=== PATIENT | female | born 1950 | race African-American/Black ===

== ENCOUNTER 2018-07-04 14:11 | Inpatient (IN) | payer OTHER ==
[2018-07-04] VITALS (13 sets, daily range): BP systolic 111–180; BP diastolic 71–99; BMI 30.3
[~2018-07-04] VITALS: Ht 165.1 cm; Wt 83.2 kg
--- NOTE | ~2018-07-04 | HEMODYNAMI ---
PATIENT:FLORIDALMA MIRAMONTES MEDICAL RECORD: [id number] : 48 [facility] AD[facility] DATE: 07/04/18 Generatedon:07/06/20189:20 Patient name: FLORIDALMA MIRAMONTES Patient #: [id number] SSN: : 1950 Date of study: 07/06/2018 Page: Of Hemodynamic Procedure Report Patient Data Patient Demographics Procedure consent was obtained First Name: FLORIDALMA Gender: Female Last Name: KULWINDER : 1950 Middle Initial: JOVANNA Age: 67 year(s) Patient #: [id number] Race: Black Additional ID: [id number] Contact details [address]: [address] [place] [address] State: [place] City: [place] Zip code: [address] Past Medical History Allergies: No known allergies Admission Admission Data Admission Date: 07/04/2018 Admission Time: 17:10 Admit Source: Emergency department Room #: D.07 Height (in.): 64.96 BSA: 1.88 (m2) Height (cm.): 165 BMI: 29.75 (kg/m2) Weight (lbs.): 178.58 Weight (kg.): 81 Procedure Procedure Types Cath Procedure Diagnostic Procedure Sedation Charges Moderate Sedation up to 15 minutes PCI Procedure Coronary Stent Coronary Stent Initial x2 Procedure Description Procedure Date Procedure Date: 07/06/2018 Procedure Start Time: 8:49 Procedure End Time: 9:19 Procedure Staff Name Function Navneet Vega MD Performing Physician Francheska Quintero RT Scrub Joaquina Alejo RT Monitor Clarisa Smith RN Nurse Bowen Schulte RN Caregivers Non Medical Jimenez May RN Nurse Procedure Data Cath Procedure Fluoroscopy Diagnostic fluoroscopy Total fluoroscopy Time: 7.1 time: 7.1 min min Diagnostic fluoroscopy Total fluoroscopy dose: 553 dose: 553 mGy mGy Contrast Material Contrast Material Type Amount (ml) Isovue 300 86 Entry Location Entry Primary Successful Side Size Upsize Upsize Entry Closure Succes sful Closure Location (Fr) 1 (Fr) 2 (Fr) Remarks Device Remarks Femoral Right 6 Fr Exoseal artery Short Estimated blood loss: 5 ml Procedure Complications No complications Procedure Medications Medication Administration Route Dosage 0.9% NaCl I.V. 100 ml/hr Oxygen etCO2 Nasal cannula 2 l/min Lidocaine 2% added to field 20 Heparin Flush Bag added to field 2 bags (1000units/500ml NS) Versed 2 mg Fentanyl I.V. 50 mcg Versed I.V. 2 mg Fentanyl I.V. 50 mcg Heparin Bolus I.V. 8500 units Plavix P.O. 75 mg Nitroglycerin IC/IA I.C. 100 mcg Versed I.V. 1 mg Hemodynamics Rest BSA: 1.88 (m2) O2 Consumption: Estimated: 188.4 (ml/min) O2 Consumption indexed: Estimated:100.21 (ml/min/m) Heart Rate: 90 (bpm) Snapshots Pre Cath Intra NCS Post Cath Vital Signs Time Heart Resp SPO2 etCO2 NIBP (mmHg) Rhythm Pain Sedation Rate (ipm) (%) (mmHg) Status Level (bpm) 8:39:40 88 11 100 36.7 138/71(80) NSR 0 (11) 10(A) , No pain 8:44:02 92 15 100 30.8 140/81(115) NSR 0 (11) 10(A) , No pain 8:48:24 90 13 100 35.3 120/70(92) NSR 0 (11) 9(A) , No pain 8:52:38 90 17 100 39.8 113/79(105) NSR 0 (11) 9(A) , No pain 8:56:52 90 13 99 42.8 114/70(88) NSR 0 (11) 9(A) , No pain 9:01:06 92 10 100 24.8 127/74(93) NSR 0 (11) 9(A) , No pain 9:05:22 93 11 100 13.5 132/69(100) NSR 0 (11) 10(A) , No pain 9:09:36 95 13 99 12.7 130/83(98) NSR 0 (11) 9(A) , No pain 9:13:52 92 14 100 25.2 137/82(110) NSR 0 (11) 9(A) , No pain 9:18:14 91 11 100 33 142/77(107) NSR 0 (11) 10(A) , No pain Medications Time Medication Route Dose Verified Delivered Reason Notes Effectiveness by by 8:38:48 Plavix P.O. 75 mg Navneet Clarisa for Gary Smith antiplatelet RN therapy 8:41:04 Fentanyl I.V. 50 Navneet Clarisa for sedation mcg Gary Smith RN 8:41:52 Versed 2 mg Navneet Clarisa for sedation Gary Smith RN 8:44:36 0.9% NaCl I.V. 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 2 mg Navneet Clarisa for sedation Gary Smith RN 8:48:03 Fentanyl I.V. 50 Navneet Clarisa for sedation mcg Gary Smith RN 8:53:27 Heparin Bolus I.V. 8500 Navneet Clarisa for verifi ed units Gary Smith anticoagulation with Dr. TERRELL Vega 9:05:35 Nitroglycerin I.C. 100 Navneet Navneet for IC/IA mcg Gary Vega MD vasodilation 9:06:31 Versed I.V. 1 mg Navneet Clarisa for sedation Gary Smith RN Procedure Log Time Note 8:14:12 Patient Height : 64.96 inches 8:14:12 Patient Weight : 178.58 lbs 8:15:25 Signed procedure consent form obtained from patient. 8:15:26 Diagnostic Cath status Elective 8:15:27 Time tracking: Regular hours (M-F 7:00 - 5:00) 8:15:31 Plan of Care:Hemodynamics will remain stable., Cardiac rhythm will remain stable., Comfort level will be maintained., Respiratory function will remain adequate., Patient/ family verbilizes understanding of procedure., Procedure tolerated without complication., Recovers from procedure without complications.. 8:19:46 Jimenez May RN sent for patient. Start room use. 8:31:29 Patient received from CVICU to CCL 1 Alert and oriented. Tansferred to table in Supine position. 8:31:31 Warm blankets applied, and romelia hugger turned on for patient comfort. 8:31:31 Correct patient and procedure confirmed by team. 8:31:32 ECG and BP/O2 sat monitors applied to patient. 8:33:59 Full Disclosure recording started 8:34:43 H&P Date Dictated: 07/04/2018 Within 30 days and on chart.. 8:34:46 Pre-procedure instructions explained to patient. 8:34:47 Pre-op teaching completed and patient verbalized understanding. 8:34:52 Family in waiting room. 8:34:54 Patient NPO since Midnight. 8:35:10 Patient allergic to No known allergies 8:35:14 Is the patient allergic to Iodine/contrast media? No. 8:36:11 Is patient on blood thinner?Yes 8:36:14 ACC The patient was administered the following blood thiners within the last 24 hours: ACCPlavix 8:36:55 Patient diabetic? Yes. 8:36:56 If diabetic: On Metformin? Yes 8:37:07 If on Metformin: Last Dose? 07/04/2018 8:37:11 Previous problem with sedation/anesthesia? No ? 8:37:13 Snore? Yes 8:37:14 Sleep apnea? No 8:37:15 Deviated septum? No 8:37:15 Opens mouth fully? Yes 8:37:16 Sticks out tongue? Yes 8:37:18 Airway obstruction? No ? 8:37:24 Dentures? Yes out 8:37:36 Pre procedure: right dorsailis pedis pulse 2+ Normal; easily identifiable; not easily obliterated 8:37:42 Patient pain scale 0/10 ?. 8:37:49 Lab results completed and on chart. 8:37:52 Right groin area was prepped with chlora-prep and draped in sterile fashion 8:37:54 Alarms reviewed by R. N. 8:37:54 Sharps counted by scrub and verified by R.N. 8:38:13 Vital chart was started 8:38:17 Rhythm: sinus rhythm 8:38:48 Plavix 75 mg P.O. was administered by Clarisa Smith RN; for antiplatelet therapy; 8:40:33 Physician arrived 8:40:34 --------ALL STOP TIME OUT------ 8:40:34 Final Timeout: patient, procedure, and site verified with staff and physician. All members of the team are in agreement. 8:40:36 Right groin site verified by team. 8:40:41 Maximum allowable Isovue 300 dose 300ml. Physician notified. (300ml for normal creatinines. For patients with creatinine of 1.7 or higher multiply weight(kg) x 5 divided by creatinine.) 8:40:55 Fire Safety Assessment: A--An alcohol-based skin anteseptic being used preoperatively., C--Open oxygen or nitrous oxide is being used., D--An ESU, laser, or fiber-optic light is being used. 8:41:00 Physical assessment completed. ASA score P 2 - A patient with mild systemic disease as per Navneet Vega MD. 8:41:04 Fentanyl 50 mcg I.V. was administered by Clarisa Smith RN; for sedation; 8:41:09 Sedation plan: IV Moderate Sedation Medication:Versed, Fentanyl 8:41:52 Versed 2 mg was administered by Clarisa Smith RN; for sedation; 8:44:36 0.9% NaCl 100 ml/hr I.V. was administered by Clarisa Smith RN; used for procedure; 8:44:42 Oxygen 2 l/min etCO2 Nasal cannula was administered by Clarisa Smith RN; used for procedure; 8:44:48 Lidocaine 2% 20ml vial added to field was administered by Navneet Vega MD; for local anesthetic; 8:44:52 Heparin Flush Bag (1000units/500ml NS) 2 bags added to field was administered by Navneet Vega MD; used for procedure; 8:46:27 Use device set CATH PACK 8:46:28 ACIST Syringe (19407) opened to sterile field. 8:46:29 ACIST Hand Control (57403) opened to sterile field. 8:46:29 ACIST Manifold (20138) opened to sterile field. 8:46:30 Medline Cath Pack ([id number]) opened to sterile field. 8:46:30 Bag Decanter () opened to sterile field. 8:46:31 DIAGNOSTIC WIRE .035 260cm J wire (387430) opened to sterile field. 8:46:53 TUBING High Pressure Extension Tubing (Gary) ([id number]) opened to sterile field. 8:46:54 BMW 300cm [place] 2 J wire ([id number]) opened to sterile field. 8:46:55 INFLATOR Merit BasixCompak (DU6870) opened to sterile field. 8:46:56 SHEATH 6FR [place] (GOR386) opened to sterile field. 8:47:54 Baseline sample Acquired. 8:47:58 Versed 2 mg I.V. was administered by Clarisa Smith RN; for sedation; 8:48:02 Zero performed for pressure channel P1 8:48:03 Fentanyl 50 mcg I.V. was administered by Clarisa Smith RN; for sedation; 8:48:12 Zero performed for pressure channel P1 8:49:41 Procedure started. 8:49:52 Local anesthetic to right femoral artery with Lidocaine 2% by Navneet Vega MD.INITIAL ACCESS ONLY 8:50:00 GUIDE 6FR XBLAD 3.5 catheter ([id number]) opened to sterile field. 8:50:18 A 6 Fr Short sheath was inserted into the Right Femoral artery 8:52:01 6 Fr xblad 3.5 guide catheter was inserted over the wire 8:53:27 Heparin Bolus 8500 units I.V. was administered by Clarisa Smith RN; for anticoagulation; verified with Dr. Vega 8:53:50 LCA angiography performed. 8:53:53 Injector settings: Ml/sec: 3, Volume: 6, 8:53:59 bmw wire advanced. 8:55:09 Wire advanced across lesion. 8:57:34 Place stent Inflation Number: 1 A ROSSY RX 3.5 x 12 stent ([id number]) was prepped and advanced across the Mid CX. The stent was deployed at 14 CHANDANA for 0:10 (min:sec). 8:57:51 Stent catheter was removed intact over wire. 8:58:49 Wire removed. 8:58:51 Guide catheter removed. 8:59:11 GUIDE 6FR AR 1.0 catheter ([id number]) opened to sterile field. 8:59:19 6 Fr ar 1 guide catheter was inserted over the wire 9:01:11 RCA angiography performed. 9:01:14 Injector settings: Ml/sec: 3, Volume: 6, 9:02:17 Guide catheter removed. 9:02:58 GUIDE 6FR JR 4.0 SH catheter ([id number]) opened to sterile field. 9:03:21 6 Fr jr 4 sh guide catheter was inserted over the wire 9:05:02 RCA angiography performed. 9:05:06 Injector settings: Ml/sec: 3, Volume: 6, 9:05:35 Nitroglycerin IC/IA 100 mcg I.C. was administered by Navneet Vega MD; for vasodilation; 9:06:31 Versed 1 mg I.V. was administered by Clarisa Smith RN; for sedation; 9:07:10 bmw wire advanced. 9:08:56 Wire advanced across lesion. 9:12:08 Place stent Inflation Number: 1 A ROSSY OTW 3.5 x 26 stent ([id number]) was prepped and advanced across the Prox RCA. The stent was deployed at 13 CHANDANA for 0:10 (min:sec). 9:14:15 Stent catheter was removed intact over wire. 9:16:04 Place stent Inflation Number: 1 A ROSSY OTW 3.5 x 18 stent ([id number]) was prepped and advanced across the Mid RCA. The stent was deployed at 14 CHANDANA for 0:10 (min:sec). 9:16:32 Stent catheter was removed intact over wire. 9:16:33 Wire removed. 9:16:34 Guide catheter removed. 9:16:45 EXOSEAL 6Fr (EX600) opened to sterile field. 9:17:46 Sheath removed intact; hemostasis achieved with Exoseal to the Right Femoral artery. 9:17:48 Procedure ended.(Physican Out) 9:17:58 Fluoroscopy time 07.10 minutes. 9:18:19 Flurop Dose total: 553 9:18:19 Fluoroscopy dose: 553 mGy 9:18:24 Contrast amount:Isovue 300 86ml. 9:18:27 Insertion/operative site no bleeding no hematoma. 9:18:29 Post-op/insertion site Right Femoral artery dressed using a 4 x 4 and Tegaderm. 9:18:39 Post procedure rhythm: unchanged. 9:18:41 Estimated blood loss: 5 ml 9:18:43 Post procedure instruction explained to patient.Patient verbalizes understanding. 9:18:44 Patient needs reinforcement of post procedure teaching. 9:19:01 Procedure type changed to Cath procedure, Diagnostic procedure, Sedation Charges, Moderate Sedation up to 15 minutes, PCI procedure, Coronary Stent, Coronary Stent Initial x2 9:19:02 Procedure and supply charges have been captured, reviewed, submitted and are correct. 9:19:07 Procedure Complication : No complications 9:19:09 Vital chart was stopped 9:19:10 See physician's report for complete and final results. 9:19:14 Report given to CVICU. 9:19:16 Patient transfered to CVICU with Stretcher. 9:19:19 Procedure ended. 9:19:19 Full Disclosure recording stopped 9:20:08 ACC-PCI Only Patient was given prescriptions, or instructed by Navneet Vega MD to start/continue the following medications upon discharge: Plavix 9:20:10 End room use (Document Last) Intervention Summary Intervention Notes Time ActionType Lesion and Equipment Used Action# Pressure Duration Attributes 8:57:34 Place stent Mid CX ROSSY RX 3.5 x 1 14 00:10 12 stent ([id number]) 9:12:08 Place stent Prox RCA ROSSY OTW 3.5 x 1 13 00:10 26 stent ([id number]) 9:16:04 Place stent Mid RCA ROSSY OTW 3.5 x 1 14 00:10 18 stent ([id number]) Device Usage Item Name Manufacture Quantity Catalog [facility] Lot# / Number Charge Number Stock Stock Serial# Code ACIST Syringe Acist 1 00842 544501 963024 081314 20 (79909) Medical Systems Inc ACIST Hand Acist 1 66536 409961 964428 795786 5 Control Medical (76222) [employer]on[employer] Inc ACIST Manifold Acist 1 53812 299439 343065 730764 5 (00495) Medical Systems Inc Medline Cath Medline 1 [id number] 440565 48432 693149 5 Pack ([id number]) Bag Decanter Microtek 1 928485 99008 521129 5 () Medical Inc. DIAGNOSTIC St [place] 1 857969 107740 985128 975148 30 WIRE .035 260cm J wire (532459) TUBING High Merit 1 [id number] 715681 56997 980884 10 Pressure Medical Extension Tubing (Vega) ([id number]) BMW 300cm Mary 1 [id number] 409586 164233 582415 5 [place] 2 J Vascular wire ([id number]) INFLATOR Merit Merit 1 LS4029 867308 656858 131749 15 DrizlywvCustomcells Medical (BV8026) SHEATH 6FR Terumo 1 NAB400 323117 115677 054719 40 [place] (PBZ065) GUIDE 6FR Cardinal 1 [id number] 782180 167679 635234 10 XBLAD 3.5 Health catheter (21032302) ROSSY RX 3.5 x Medtronic 1 [id number] 018134 7425074 816986 5 [id number] 12 stent ([id number]) GUIDE 6FR AR Medtronic 1 [id number] 467011 90181 947055 1 1.0 catheter (GD6ZQ85) GUIDE 6FR JR Medtronic 1 [id number] 034832 69741 610237 1 4.0 SH catheter ([id number]) ROSSY OTW 3.5 x Medtronic 1 [id number] 006298 5223405 390627 5 [id number] 26 stent ([id number]) ROSSY OTW 3.5 x Medtronic 1 [id number] 509356 0093926 275628 5 [id number] 18 stent ([id number]) EXOSEAL 6Fr Cardinal 1 EX600 610428 356038 933444 10 (EX600) Health Signature Audit [place] Stage Time Signature Unsigned Intra-Procedure 07/06/2018 Joaquina Alejo 9:20:37 AM RT(R) Signatures Monitor : Joaquina Alejo RT Signature : Date : Time : [address] [place], [place] [id number]
--- NOTE | ~2018-07-04 | HEMODYNAMI ---
PATIENT:FLORIDALMA MIRAMONTES MEDICAL RECORD: [id number] : 48 [id number] ADMISSION DATE: 07/04/18 Generatedon:07/04/201816:18 Patient name: FLORIDALMA MIRAMONTES Patient #: [id number] SSN: : 1950 Date of study: 07/04/2018 Page: Of Hemodynamic Procedure Report Patient Data Patient Demographics Procedure consent was obtained First Name: FLORIDALMA Gender: Female Last Name: KULWINDER : 1950 Middle Initial: JOVANNA Age: 67 year(s) Patient #: [id number] Race: Black Additional ID: [id number] Contact details [address]: [address] [place] [address] State: [place] City: [place] Zip code: [address] Admission Admission Data Admission Date: 07/04/2018 Admission Time: 15:25 Admit Source: Emergency department Room #: MAURA Height (in.): 64.96 BSA: 1.88 (m2) Height (cm.): 165 BMI: 29.75 (kg/m2) Weight (lbs.): 178.58 Weight (kg.): 81 Procedure Procedure Types Cath Procedure Diagnostic Procedure [facility] w/Coronaries Sedation Charges Moderate Sedation up to 30 minutes PCI Procedure AMI/SVG/FARMWORKER LIVESTOCK PTCA or Stent AMI-BMS/JOSE Initial Procedure Description Procedure Date Procedure Date: 07/04/2018 Procedure Start Time: 15:30 Procedure End Time: 16:13 Procedure Staff Name Function Francheska Quintero RT Monitor Brendon Ruano RT Scrub Taurus Cummings RN Nurse Yevgeniy Keith MD Performing Physician Procedure Data Cath Procedure Fluoroscopy Diagnostic fluoroscopy Total fluoroscopy Time: time: 10.5 min 10.5 min Diagnostic fluoroscopy Total fluoroscopy dose: dose: 2337 mGy 2337 mGy Contrast Material Contrast Material Type Amount (ml) Isovue 300 145 Entry Location Entry Primary Successful Side Size Upsize Upsize Entry Closure Succes sful Closure Location (Fr) 1 (Fr) 2 (Fr) Remarks Device Remarks Femoral Right 6 Fr Exoseal artery Short Estimated blood loss: 10 ml Diagnostic catheters Device Type Used For End Catheter Placement MULTIPACK 3DRC 5Fr Procedure catheter MULTIPACK Pigtail 5 Fr Procedure catheter Procedure Complications No complications Procedure Medications Medication Administration Route Dosage 0.9% NaCl I.V. 100 ml/hr Oxygen etCO2 Nasal cannula 2 l/min Heparin Flush Bag added to field 2 bags (1000units/500ml NS) Lidocaine 2% added to field 20 Versed I.V. 1 mg Fentanyl I.V. 50 mcg Integrilin (Bolus I.V. 7.3 ml 2mg/ml) Integrilin (Bolus wasted 2.7 ml 2mg/ml) Lopressor I.V. 5 mg Nitroglycerin IC/IA I.C. 200 mcg Lopressor I.V. 5 mg Versed I.V. 1 mg Fentanyl I.V. 50 mcg Integrilin Drip I.V. drip 13 ml/hr (75mg/100ml) Hemodynamics Rest BSA: 1.88 (m2) O2 Consumption: Estimated: 205.91 (ml/min) O2 Consumption indexed : Estimated:109.53 (ml/min/m) Heart Rate: 115 (bpm) Pressure Samples Time Site Value (mmHg) Purpose Heart Use Rate(bpm) 16:03 LV 186/2,33 Snapshot 80 16:03 AO 179/81(129) Pullback 88 Gradients Valve Time Site Site 2 Mean SEP/DFP Peak To Heart Use 1 (mmHg) (sec/min) Peak Rate (mmHg) (bpm) Aortic 16:03 LV AO 10 13 88 179/81(129) Calculations Valve P-P Mean Valve Index Valve Source Name Gradient Area Flow (cm2) Aortic 10 10 Snapshots Pre Cath Intra NCS Post Cath Vital Signs Time Heart Resp SPO2 etCO2 NIBP (mmHg) Rhythm Pain Status Sedation Rate (ipm) (%) (mmHg) Level (bpm) 15:24:46 114 13 97 0 169/111(149) NSR 10 (11) , 10(A) Unimaginable unspeakable 15:29:02 112 17 95 0 170/106(140) NSR 10 (11) , 10(A) Unimaginable unspeakable 15:33:19 112 14 97 26.3 170/108(134) NSR 0 (11) , No 9(A) pain 15:37:36 106 13 93 29.3 171/105(138) NSR 0 (11) , No 9(A) pain 15:41:54 94 17 94 33.9 180/103(141) NSR 0 (11) , No 9(A) pain 15:46:15 92 12 99 32.4 185/105(149) NSR 0 (11) , No 9(A) pain 15:50:35 91 16 99 30.8 160/99(131) NSR 0 (11) , No 9(A) pain 15:54:49 93 14 100 23.3 177/108(150) NSR 0 (11) , No 9(A) pain 15:59:09 89 16 100 32.4 179/112(150) NSR 0 (11) , No 9(A) pain 16:03:29 116 15 99 28.6 175/110(138) NSR 0 (11) , No 9(A) pain 16:07:49 89 14 100 27.1 177/109(150) NSR 0 (11) , No 9(A) pain 16:12:09 86 17 100 26.3 178/102(150) NSR 0 (11) , No 9(A) pain Medications Time Medication Route Dose Verified Delivered Reason Notes E ffectiveness by by 15:28:13 0.9% NaCl I.V. 100 Taurus Taurus Per ml/hr Zoila Cummings physician RN RN 15:28:21 Oxygen etCO2 2 Taurus Taurus for low 02 Nasal l/min Zoila Cummings sats cannula RN RN 15:28:32 Heparin Flush added 2 Taurus Taurus used for Bag to bags Zoila Cummings procedure (1000units/500ml RN RN NS) 15:28:42 Lidocaine 2% added 20ml Taurus Taurus for local to vial Zoila Cummings anesthetic field TEJADA RN 15:28:53 Versed I.V. 1 mg Taurus Taurus for sedation Zoila Cummings RN RN 15:29:04 Fentanyl I.V. 50 Taurus Taurus for sedation mcg Zoila Cummings RN RN 15:35:24 Integrilin I.V. 7.3 Taurus Taurus for (Bolus 2mg/ml) ml Zoila Cummings antiplatelet RN RN therapy 15:35:31 Integrilin wasted 2.7 Taurus Taurus to sharp's (Bolus 2mg/ml) ml Zoila Cummings RN RN 15:36:59 Lopressor I.V. 5 mg Taurus Taurus for Lorigan Lortyrell hypertension RN RN 15:49:47 Nitroglycerin I.C. 200 Taurus Yevgeniy for IC/IA mcg Lortyrell Hart RN, MD 15:56:27 Lopressor I.V. 5 mg Taurus Taurus for Lorigan Lortyrell hypertension RN RN 16:11:48 Versed I.V. 1 mg Taurus Taurus for sedation Zoila Cummings RN RN 16:11:55 Fentanyl I.V. 50 Taurus Taurus for sedation mcg Zoila Cummings RN RN 16:16:56 Integrilin Drip I.V. 13 Taurus Taurus for (75mg/100ml) drip ml/hr Zoila Cummings antiplatelet RN RN therapy Procedure Log Time Note 15:07:31 Informed consent obtained and on chart 15:07:35 Admit Source: Emergency department 15:07:48 Diagnostic Cath status Elective 15:07:50 Brendon Ruano RT(R) sent for patient. Start room use. 15:07:50 Time tracking: Regular hours (M-F 7:00 - 5:00) 15:07:54 Plan of Care:Hemodynamics will remain stable., Cardiac rhythm will remain stable., Comfort level will be maintained., Respiratory function will remain adequate., Patient/ family verbilizes understanding of procedure., Procedure tolerated without complication., Recovers from procedure without complications.. 15:16:33 Patient Weight : 178.58 lbs 15:16:49 Patient Height : 64.96 inches 15:20:02 Patient received from ED to CCL 2 Alert and oriented. Tansferred to table in Supine position. 15:20:02 Warm blankets applied, and romelia hugger turned on for patient comfort. 15:20:03 Correct patient and procedure confirmed by team. 15:20:03 ECG and BP/O2 sat monitors applied to patient. 15:23:20 Vital chart was started 15:25:28 Baseline sample Acquired. 15:26:02 Rhythm: sinus rhythm , w/ ST elevation 15:26:03 Full Disclosure recording started 15:26:19 H&P Date Dictated: 07/04/2018 ER History on chart.. 15:26:25 Pre-op teaching completed and patient verbalized understanding. 15:26:27 Pre-procedure instructions explained to patient. 15:26:29 Family in waiting room. 15:26:50 Patient NPO since Breakfast. 15:26:56 Is the patient allergic to Iodine/contrast media? No. 15:27:00 Is patient on blood thinner?Yes 15:27:09 ACC The patient was administered the following blood thiners within the last 24 hours: ACCPlavix 15:27:14 Patient diabetic? Yes. 15:27:16 If diabetic: On Metformin? Yes 15:27:18 If on Metformin: Last Dose? 07/04/2018 15:27:24 Patient not . Patient is over age 55. 15:27:27 ----Pre-sedation anethsthesia assessment.---- 15:27:29 Previous problem with sedation/anesthesia? No ? 15:27:31 Snore? Yes 15:27:33 Sleep apnea? No 15:27:35 Deviated septum? No 15:27:36 Opens mouth fully? Yes 15:27:37 Sticks out tongue? Yes 15:27:41 Airway obstruction? No ? 15:27:48 Dentures? Yes OUT 15:27:53 Pre procedure: right dorsailis pedis pulse 2+ Normal; easily identifiable; not easily obliterated 15:28:01 IV patent on arrival in left forearm with 0.9% NaCl at O. 15:28:13 0.9% NaCl 100 ml/hr I.V. was administered by Taurus Cummings RN; Per physician; 15:28:13 Right groin area was prepped with chlora-prep and draped in sterile fashion 15:28:14 Alarms reviewed by R. N. 15:28:15 Sharps counted by scrub and verified by R.N. 15:28:18 Physician arrived 15:28:19 --------ALL STOP TIME OUT------ 15:28:20 Final Timeout: patient, procedure, and site verified with staff and physician. All members of the team are in agreement. 15:28:21 Oxygen 2 l/min etCO2 Nasal cannula was administered by Taurus Cummings RN; for low 02 sats; 15:28:23 Right groin site verified by team. 15:28:32 Heparin Flush Bag (1000units/500ml NS) 2 bags added to field was administered by Taurus Cummings RN; used for procedure; 15::39 Maximum allowable Isovue 300 dose 200ml. Physician notified. (300ml for normal creatinines. For patients with creatinine of 1.7 or higher multiply weight(kg) x 5 divided by creatinine.) 15::42 Lidocaine 2% 20ml vial added to field was administered by Taurus Cummings RN; for local anesthetic; 15::44 Fire Safety Assessment: A--An alcohol-based skin anteseptic being used preoperatively., C--Open oxygen or nitrous oxide is being used., D--An ESU, laser, or fiber-optic light is being used. 15:28:53 Versed 1 mg I.V. was administered by Taurus Cummings RN; for sedation; 15:29:04 Fentanyl 50 mcg I.V. was administered by Taurus Cummings RN; for sedation; 15:29:30 Physical assessment completed. ASA score P 2 - A patient with mild systemic disease as per Yevgeniy Keith MD. 15:29:36 Sedation plan: IV Moderate Sedation Medication:Versed, Fentanyl 15:29:48 Use device set Femoral Dx 15:29:50 ACIST Syringe (85814) opened to sterile field. 15:29:51 Bag Decanter (2002) opened to sterile field. 15:29:51 Medline Cath Pack ([id number]) opened to sterile field. 15:29:52 DIAGNOSTIC WIRE .035 260cm J wire (174459) opened to sterile field. 15:29:54 ACIST Hand Control (03220) opened to sterile field. 15:29:55 ACIST Manifold (58861) opened to sterile field. 15:29:56 DIAGNOSTIC Multipack 5Fr catheter set (SH1045) opened to sterile field. 15:29:57 Tegaderm 4 x 4 (1626W) opened to sterile field. 15:30:13 SHEATH 6FR Austin (QIN859) opened to sterile field. 15:30:26 Procedure started. 15:30:31 Local anesthetic to right femoral artery with Lidocaine 2% by Yevgeniy Keith MD.INITIAL ACCESS ONLY 15:30:34 Zero performed for pressure channel P1 15:31:01 A 6 Fr Short sheath was inserted into the Right Femoral artery 15:32:13 GUIDE 6FR XBLAD 3.5 catheter ([id number]) opened to sterile field. 15:32:24 INFLATOR Merit BasixCompak (MO7633) opened to sterile field. 15:32:48 6 Fr XBLAD 3.5 guide catheter was inserted over the wire 15:33:03 WHISPER 300cm guide wire ([id number]) opened to sterile field. 15:34:29 WHISPER 300 wire advanced. 15:35:24 Integrilin (Bolus 2mg/ml) 7.3 ml I.V. was administered by Taurus Cummings RN; for antiplatelet therapy; 15:35:31 Integrilin (Bolus 2mg/ml) 2.7 ml wasted was administered by Taurus Cummings RN; to sharp's; 15:36:07 Wire advanced across lesion. 15:36:52 Inflate balloon Inflation number: 1 A EMERGE OTW 3.0 x 15 balloon ([id number]) was prepped and advanced across the Mid LAD, then inflated to 10 CHANDANA for 0:00 (min:sec). 15:36:59 Lopressor 5 mg I.V. was administered by Taurus Cummings RN; for hypertension; 15:37:22 Inflation number: 2 The EMERGE OTW 3.0 x 15 balloon ([id number]) was reinflated across the Mid LAD, to 10 CHANDANA for 0:00 (min:sec). 15:37:38 Balloon removed over the wire. 15:38:36 Inflation number: 3 The EMERGE OTW 3.0 x 15 balloon ([id number]) was reinflated across the Mid LAD, to 6 CHANDANA for 0:00 (min:sec). 15:39:05 Inflation number: 4 The EMERGE OTW 3.0 x 15 balloon ([id number]) was reinflated across the Mid LAD, to 6 CHANDANA for 0:00 (min:sec). 15:39:38 Balloon removed over the wire. 15:43:14 Place stent Inflation Number: 5 A ROSSY OTW 3.0 x 38 stent ([id number]) was prepped and advanced across the Mid LAD. The stent was deployed at 14 CHANDANA for 0:00 (min:sec). 15:44:06 Stent catheter was removed intact over wire. 15:47:09 Place stent Inflation Number: 6 A ROSSY OTW 3.5 x 38 stent ([id number]) was prepped and advanced across the Mid LAD. The stent was deployed at 16 CHANDANA for 0:00 (min:sec). 15:47:30 Stent catheter was removed intact over wire. 15:49:47 Nitroglycerin IC/IA 200 mcg I.C. was administered by Yevgeniy Keith MD; for vasodilation; 15:52:20 Place stent Inflation Number: 1 A ROSSY RX 3.5 x 15 stent ([id number]) was prepped and advanced across the Prox LAD. The stent was deployed at 16 CHANDANA for 0:00 (min:sec). 15:53:11 Stent catheter was removed intact over wire. 15:56:27 Lopressor 5 mg I.V. was administered by Taurus Cummings RN; for hypertension; 15:56:30 Inflate balloon Inflation number: 1 A EMERGE OTW 2.0 x 20 balloon ([id number]) was prepped and advanced across the Dist LAD, then inflated to 10 CHANDANA for 0:00 (min:sec). 15:57:19 Inflation number: 2 The EMERGE OTW 2.0 x 20 balloon ([id number]) was reinflated across the Dist LAD, to 8 CHANDANA for 0:00 (min:sec). 15:57:53 Inflation number: 3 The EMERGE OTW 2.0 x 20 balloon ([id number]) was reinflated across the Dist LAD, to 10 CHANDANA for 0:00 (min:sec). 15:58:45 Balloon removed over the wire. 16:00:21 Wire removed. 16:00:26 Guide catheter removed. 16:01:13 A MULTIPACK 3DRC 5Fr catheter was advanced over the wire and used for Procedure. 16:01:42 RCA angiography performed. 16::45 Catheter exchanged over wire. 16:02:35 A MULTIPACK Pigtail 5 Fr catheter was advanced over the wire and used for Procedure. 16:02:50 LV gram done using OLIVA 16::52 Injector settings: Ml/sec: 10, Volume: 20, 16:03:30 LV hemodynamics recorded. 16:03:34 EF : 40 % 16:03:40 Catheter removed. 16:04:11 EXOSEAL 6Fr (EX600) opened to sterile field. 16:04:31 Sheath removed intact; hemostasis achieved with Exoseal to the Right Femoral artery. 16:04:39 Procedure ended.(Physican Out) 16:06:46 Fluoroscopy time 10.50 minutes. 16:06:52 Fluoroscopy dose: 2337 mGy 16:06:52 Flurop Dose total: 2337 16:06:59 Contrast amount:Isovue 300 145ml. 16:07:03 Sharps counted by scrub and verified by R.N. 16:07:06 Post-op/insertion site Right Femoral artery dressed using a 4 x 4 and Tegaderm. 16:07:18 Post-procedure physical assessment completed. ASA score P 2 - A patient with mild systemic disease as per Yevgeniy Keith MD. 16:07:22 Post procedure rhythm: sinus rhythm 16:07:24 Estimated blood loss: 10 ml 16:07:25 Post procedure instruction explained to patient.Patient verbalizes understanding. 16:07:25 Patient needs reinforcement of post procedure teaching. 16:07:54 Procedure type changed to Cath procedure, Diagnostic procedure, LHC, LHC w/Coronaries, Sedation Charges, Moderate Sedation up to 30 minutes, PCI procedure, AMI/SVG/FARMWORKER LIVESTOCK PTCA or Stent, AMI-BMS/JOSE Initial 16:10:21 Procedure and supply charges have been captured, reviewed, submitted and are correct. 16:10:29 FEMSTOP Gold ([id number]) opened to sterile field. 16:10:41 Femstop placed over the right femoral artery at 190 mmHg. Hemostasis achieved. 16:10:46 Procedure Complication : No complications 16:11:48 Versed 1 mg I.V. was administered by Taurus Cummings RN; for sedation; 16:11:55 Fentanyl 50 mcg I.V. was administered by Taurus Cummings RN; for sedation; 16:13:37 Vital chart was stopped 16:13:37 See physician's report for complete and final results. 16:13:41 Report given to CVICU. 16:13:44 Patient transfered to CVICU with Bed. 16:13:46 Procedure ended. 16:13:46 Full Disclosure recording stopped 16:13:50 End room use (Document Last) 16:16:56 Integrilin Drip (75mg/100ml) 13 ml/hr I.V. drip was administered by Taurus Cummings RN; for antiplatelet therapy; Intervention Summary Intervention Notes Time ActionType Lesion and Equipment Used Action# Pressure Duration Attributes 15:36:52 Inflate Mid LAD EMERGE OTW 3.0 1 10 00:00 balloon x 15 balloon ([id number]) 15:37:22 Reinflate Mid LAD EMERGE OTW 3.0 2 10 00:00 balloon x 15 balloon ([id number]) 15:38:36 Reinflate Mid LAD EMERGE OTW 3.0 3 6 00:00 balloon x 15 balloon ([id number]) 15:39:05 Reinflate Mid LAD EMERGE OTW 3.0 4 6 00:00 balloon x 15 balloon ([id number]) 15:43:14 Place stent Mid LAD ROSSY OTW 3.0 x 5 14 00:00 38 stent ([id number]) 15:47:09 Place stent Mid LAD ROSSY OTW 3.5 x 6 16 00:00 38 stent ([id number]) 15:52:20 Place stent Prox LAD ROSSY RX 3.5 x 1 16 00:00 15 stent ([id number]) 15:56:30 Inflate Dist LAD EMERGE OTW 2.0 1 10 00:00 balloon x 20 balloon ([id number]) 15:57:19 Reinflate Dist LAD EMERGE OTW 2.0 2 8 00:00 balloon x 20 balloon ([id number]) 15:57:53 Reinflate Dist LAD EMERGE OTW 2.0 3 10 00:00 balloon x 20 balloon ([id number]) Device Usage Item Name Manufacture Quantity Catalog Number Hospital Part Current Minimal Lot# / Charge Number Stock Stock Serial# Code ACIST Syringe Acist 1 53741 716213 101736 787626 20 (43699) Tiger[employer] Systems Inc Bag Decanter Microtek 1 558523 94145 731380 5 () Medical Inc. Medline Cath Medline 1 [id number] 254303 21753 657470 5 Pack ([id number]) DIAGNOSTIC St Tobi 1 395676 536434 445861 751819 30 WIRE .035 260cm J wire (997814) ACIST Hand Acist 1 90895 757386 767317 378360 5 Control Medical (90312) Systems Inc ACIST Manifold Acist 1 45349 652760 785991 255840 5 (29371) Medical Systems Inc DIAGNOSTIC Cardinal 1 KZ4518 308122 67774 290281 30 Multipack 5Fr Health catheter set (YW2820) Tegaderm 4 x 4 3M 1 1626W 498259 307430 406791 5 (1626W) SHEATH 6FR Terumo 1 XGL535 169621 326422 930227 40 Austin (DHG141) GUIDE 6FR Cardinal 1 [id number] 076843 512591 250413 10 XBLAD 3.5 Health catheter (85546941) INFLATOR Merit Merit 1 KT0173 498467 115388 918763 15 XoinkacoAdviqo (OV0210) WHISPER 300cm Mary 1 [id number] 267616 124467 226925 5 guide wire Vascular ([id number]) EMERGE OTW 3.0 Jerome 1 [id number] 784153 970479 509661 5 26117477 x 15 balloon Scientific ([id number]) ROSSY OTW 3.0 x Medtronic 1 [id number] 443072 5487824 910623 5 [id number] 38 stent ([id number]) ROSSY OTW 3.5 x Medtronic 1 [id number] 210618 5167721 772234 5 [id number] 38 stent ([id number]) ROSSY RX 3.5 x Medtronic 1 [id number] 698479 9893460 008320 5 [id number] 15 stent ([id number]) EMERGE OTW 2.0 Jerome 1 [id number] 472465 972664 779566 5 [id number] x 20 balloon Scientific ([id number]) MULTIPACK 3DRC Cardinal 1 083223 5 5Fr catheter Health MULTIPACK Cardinal 1 747406 5 Pigtail 5 Fr Health catheter EXOSEAL 6Fr Cardinal 1 EX600 365219 358486 261943 10 (EX600) Health FEMSTOP Gold St Tobi 1 B20145 374114 648934 237585 5 ([id number]) Signature Audit Lares Stage Time Signature Unsigned Intra-Procedure 07/04/2018 Francheska Quintero 4:18:16 PM RT(R) Signatures Monitor : Francheska Quintero Signature : RT Date : Time : [address] [address]
[2018-07-04] MEDS ORDERED: LOPRESSOR25 MG PO (14:28)
[2018-07-04 15:11] LABS: BASOPHILS 0.2 % (0-2); EOSINOPHILS 0.4 % (0-7); HEMATOCRIT 50.1 % (36.0-48.0); HEMOGLOBIN 18.2 g/dL (12-16); IMMATURE GRANULOCYTES 0.2 % (0-5); LYMPHOCYTES 17.8 % (15-50); MCH 31.4 pg (26.0-34.0); MCHC 36.3 g/dL (31.0-37.0); MCV 86.4 fL (80.0-100.0); MEAN PLATELET VOLUME 13.2 fL (7.4-10.4); MONOCYTES 4.9 % (2-11); NEUTROPHILS 76.5 % (40-80); PLATELET COUNT 152 10x3/uL (130-400); RDW 12.6 % (11.5-14.5); WBC 9.2 10x3/uL (4.8-10.8)
[2018-07-04 15:22] LABS: ANION GAP 15.7 mmol/L (8-16); CALCIUM 9.8 mg/dL (8.5-10.1); CARBON DIOXIDE 27.1 mmol/L (21.0-32.0); POTASSIUM - SERUM 3.8 mmol/L (3.5-5.1)
[2018-07-04 16:00] LABS: APTT 32.2 SECONDS (22.8-39.4); INR 0.97 (0.85-1.17); PROTIME 12.4 SECONDS (11.6-15.0)
--- NOTE | 2018-07-04 17:11 | NUR ---
1630 PT ARRIVED TO ROOM CONFUSED, REORIENTED WITHELVIATTLE SUCCESS, O2 2L NC, HR NSR, R AC PIV SL, LFA PIV WITH INTEGRELIN 13ML/HR AND NS 200ML/HR, R GROIN FEM STOP IN PLACE, SMALL HEMATOMA PRESENT TO LEFT OF GROIN, PT COMPLAINING OF NEED TO URINATE, ROLLED KEEPING LEGS STRAIGHT AND VOIDED SMALL AMOUNT, PT BEGAN COMPLAINING OF THE NEED TO SIT UP, BENDING RLE MULTIPLE TIMES DESPITE CONSTANTLY BEING TOLD NOT TO AND REDIRECTED, EXPLAINED TO PT AND FRIEND GEMINI WHY SHE CANNOT MOVE LEG, BEGAN COMPLAINING OF PAIN TO RLE, SLIGHT INCREASE IN HEMATOMA SIZE, CALLED SERA IN INVESTIGATOR VICE WHO CAME TO ASSESS SIGHT, ORDERS FOR MORPHINE AND DR WEST TO ROOM, ORDERS FOR MORPHINE AND ATIVAN PRN. PT CONTINUALLY YELLING OUT "HELP ME" "IM HURTING" STATING SHE WANTS A PILLOW UNDER HER, ETC, FRIEND ENCOURAGING PT TO STAY STILL TO LET MEDICATION TAKE EFFECT AND IS NOT RECEPTIVE TO HIS DIRECTION EITHER, THIS NURSE STAYING AT BEDSIDE AT THIS TIME
--- NOTE | 2018-07-04 18:02 | NUR ---
PAGED DR WEST AND NOTIFIED OF BP 180/99 AND THAT PT REMAINS AGITATED AND BENDING LEGS AND ROLLING IN BED DESPITE MYSELF BEING IN ROOM CONTINUALLY WITH PT, ORDERS FOR CLONIDONE 0.1X1
--- NOTE | 2018-07-04 20:00 | NUR ---
RESTING QUIETLY. KEEPING R LEG STRAIGHT. FAMILY AT BEDSIDE. PERIPHERAL PULSES PALPABLE, FEM STOP IN PLACE.
--- NOTE | 2018-07-04 22:00 | NUR ---
ASSISTED WITH BEDPAN. VOIDED. IS LEAVING, SAYS HE WILL BE HERE IN AM.
[2018-07-05] VITALS (23 sets, daily range): BP systolic 95–172; BP diastolic 39–92; Ht 165.1 cm; Wt 83.2 kg
--- NOTE | 2018-07-05 07:23 | NUR ---
DR WEST BY TO SEE PATIENT.
--- NOTE | 2018-07-05 08:02 | NUR ---
PT CALLING OUT NEEDS TO TOILET. ASKED PT IF ABLE TO WALK PRIOR TO COMING TO HOSPITAL. INDICATED SHE COULD. ASKED IF SHE USED A WALKER OR CANE AND SHE DENIED USING ANY ASSISTIVE DEVICE. ASSISTED PT FROM EDGE OF BED TO STANDING. TOLERATED FINE. PT THEN LEANED OVER TO CHAIR AT BEDSIDE, GRABBED ARM OF CHAIR AND EXCLAIMED "OH GOD, OH GOD" AND SLOWLY TOOK TO HER KNEES AND THEN TO HER BACKSIDE TO THE FLOOR. THIS WAS FOLLOWED BY "OH RAMOS, OH RAMOS I CAN'T DO THIS" WITH THE ASSISTANCE FROM ANOTHER NURSE WE HELPED THE PATIENT UP TO BEDSIDE COMMODE. SHE URINATED AND WIPED. PT CHAIR WAS SITUATED NEXT TO BED SO PT COULD TRANSFER FROM CHAIR TO BED WITH MINIMAL ASSIST. I WAS ASSISTING PT TO BED WHEN SHE AGAIN WENT TO THE FLOOR. I BELIEVE THESE EPISODES TO BE ATTENTION SEEKING IN NATURE, BUT NOTIFIED DR WEST NONETHELESS THAT THE PATIENT HAD FALLEN. THERE ARE NO INJURIES.
[2018-07-05 08:07] LABS: BASOPHILS 0.1 % (0-2); EOSINOPHILS 0.4 % (0-7); HEMATOCRIT 47.5 % (36.0-48.0); HEMOGLOBIN 16.8 g/dL (12-16); IMMATURE GRANULOCYTES 0.1 % (0-5); LYMPHOCYTES 23.9 % (15-50); MCH 30.7 pg (26.0-34.0); MCHC 35.4 g/dL (31.0-37.0); MCV 86.7 fL (80.0-100.0); MEAN PLATELET VOLUME 12.6 fL (7.4-10.4); MONOCYTES 6.8 % (2-11); NEUTROPHILS 68.7 % (40-80); PLATELET COUNT 136 10x3/uL (130-400); RBC 5.48 10x6/uL (4.00-5.40); RDW 12.5 % (11.5-14.5); WBC 8.1 10x3/uL (4.8-10.8)
--- NOTE | 2018-07-05 09:49 | NUR ---
DAUGHTER YARA VALDERRAMA AND PT BOYFRIEND AT BEDSIDE FOR VISITATION. LET THEM KNOW PT HAD FALLEN. DAUGHTER AND BOYFRIEND INDICATES PT AMBULATES WITH NO DIFFICULTY. DRIVES SELF. STATES PT HAD GONE TO PRIMARY PROVIDER YESTERDAY MORNING. THOUGHT SHE HAD INDIGESTION, PT DROVE SELF HOME. BOYFRIEND NOTICED PT NOT ACTING FEELING WELL. TOOK HER TO ER AND WAS SENT HERE FOR FURTHER CARE. DAUGHTER ON PHONE WITH PCP OFFICE TO NOTIFY OF PT HOSPITALIZATION. CONVERSATION OVERHEARD, WAS THOUGHT PATIENT HAD PULLED A MUSCLE WHEN SEEN. PT ALSO ASKED IF SHE COULD APPLY FOR DISABILITY SINCE SHE HAS HAD A HEART ATTACK. WAS TOLD BY OFFICE MOST LIKELY NOT, MANY PEOPLE CONTINUE TO WORK AFTERWARDS. PT ASSISTED IN REPOSITIONING BY MYSELF AND DAUGHTER. NO ADDITIONAL NEEDS VOICED. NO C/O PAIN. CALL LIGHT IN REACH
--- NOTE | 2018-07-05 12:14 | NUR ---
FLIGHT COMMUNICATIONS SPECIALIST AT BEDSIDE
--- NOTE | 2018-07-05 13:01 | NUR ---
PT HAS HAD LUNCH. FAMILY AT BEDSIDE AT THIS TIME.
--- NOTE | 2018-07-05 13:38 | OP ---
PATIENT NAME: FLORIDALMA MIRAMONTES MEDICAL RECORD: [id number] :48 LOCATION:[facility] ADMISSION DATE:07/04/18 SURGEON: OSMAN ROBERSON MD DATE OF OPERATION: 07/04/2018 PROCEDURE: Left heart catheterization, selective coronary angiography, right femoral artery approach. CATHETERS: A 5-Cayman Islander sheath, 5/4 left and right Erica, 5/4 pig. The procedure was well tolerated. We proceeded to do emergency PTCA and stenting. FINDINGS: Left ventriculography in 30-degree OLIVA view shows anterior and anteroapical hypokinesis. Overall LV function lower limits of normal at 50%. CORONARY ANATOMY: LEFT MAIN: Left main is free of disease. LAD: LAD fills for a short period of time, is totally occluded. CIRCUMFLEX: It has an 80% stenosis in midportion. RIGHT CORONARY ARTERY: It has proximal stenosis of 80%. PLAN: Emergent revascularization of LAD. DESCRIPTION OF PROCEDURE: Using indwelling 6-Cayman Islander sheath, EBU 3.5 guiding catheter provided excellent guide catheter support. Predeployment balloon was 3.0 x 15 mm [place] up and down the vessel. This showed bahai of FRANCIS flow from 0 to 2. Next, stents were placed in the following fashion. Distally, a 3.0 x 30 mm [place] drug-eluting stent; in the midportion, a 3.5 x 30 mm [place] drug-eluting stent; and finally, a 3.5 x 15 mm [place] drug-eluting stent up to 14 atmospheres. Final angiography shows excellent resolution of 100% stenosis with no significant residual. FRANCIS flow improved from 0 to 3. Plan for intervention to the circumflex at a later date. TRANSINT:[id number] Voice Confirmation ID: [id number] DOCUMENT ID: [id number] OSMAN ROBERSON MD at 1338 CC: [id number] DICTATION DATE: 07/04/18 1614 BONBON DIPPER: 07/04/18 1652 ADM IN [facility] [address] [place] [address]
--- NOTE | 2018-07-05 14:00 | NUR ---
PT SLEEPING AT THIS TIME. BOYFRIEND AT BEDSIDE. NO DISTRESS.
--- NOTE | 2018-07-05 14:30 | NUR ---
PT ASSISTED BY 2 NURSE UP TO COMMODE AT BEDSIDE. SISTER IN ROOM AT THIS TIME. PT PROVIDED WITH BATH WIPES TO CLEAN CONNIE-AREA. REST OF BODY ALSO WIPED DOWN WITH BATH WIPES AND ALL NEW LINENS AND GOWN PLACED. PT THEN ASSISTED BACK TO BED.
--- NOTE | 2018-07-05 17:25 | NUR ---
SISTER AT BEDSIDE. DINNER TRAY PROVIDED. PT ALSO HAS SALAD THAT SISTER BROUGHT IN. DENIES ANY ADDITIONAL NEEDS. CALL LIGHT IN REACH
--- NOTE | 2018-07-05 18:50 | MORECARE ---
CASE MANAGEMENT DISCHARGE SUMMARY PATIENT: FLORIDALMA MIRAMONTES UNIT: [id number] ADM DATE: 07/04/18 AGE: 67 : 49 SEX: F ROOM/BED: [facility] AUTHOR: ROSALINO ROBLES PHYSICIAN: REFERRING PHYSICIAN: IRVING WEST M.D. DATE OF SERVICE: 07/05/18 Discharge Plan Patient Name: FLORIDALMA MIRAMONTES Facility: [facility]:[place] : 1950 Planned Disposition: Home Anticipated Discharge Date: Discharge Date: Expected LOS: Initial Reviewer: [email or web address] Initial Review Date: 07/04/2018 Generated: 07/05/18 7:50 pm DCPIA - Discharge Planning Initial Assessment Updated by [email or web address]: Ann Hernandez on 07/05/18 6:49 pm * Is the patient Alert and Oriented? Yes * How many steps to enter\exit or inside your home? * PCP LIBERTY BENDER * [facility] * Preadmission Environment Home Alone * ADLs Independent * Equipment None * List name and contact numbers for known caregivers / representatives who currently or will assist patient after discharge: JADA SOTO [facility]- [phone] * Verbal permission to speak to the caregivers and representatives has been obtained from the patient. No * Community resources currently utilized None * Additional services required to return to the preadmission environment? No * Can the patient safely return to the preadmission environment? Yes * Has this patient been hospitalized within the prior 30 days at any hospital? No Patient Name: FLORIDALMA MIRAMONTES Page [id number] at 1850 All edits/amendments must be made on the electronic document DICTATION DATE: 07/05/181848 FOREST FIRE MANAGEMENT OFFICER: LACEY 07/05/181848 RPT#: [id number] DC DATE: STATUS: ADM IN [facility] [address] [place] [address] END OF REPORT
--- NOTE | 2018-07-05 18:57 | MORECARE ---
CASE MANAGEMENT DISCHARGE SUMMARY PATIENT: FLORIDALMA MIRAMONTES UNIT: [id number] ADM DATE: 07/04/18 AGE: 67 : 49 SEX: F ROOM/BED: [facility] AUTHOR: TRAVIS,DOC PHYSICIAN: REFERRING PHYSICIAN: IRVING WEST M.D. DATE OF SERVICE: 07/05/18 Discharge Plan Patient Name: FLORIDALMA MIRAMONTES Facility: [facility]:[place] : 1950 Planned Disposition: Home Anticipated Discharge Date: Discharge Date: Expected LOS: Initial Reviewer: [email or web address] Initial Review Date: 07/04/2018 Generated: 07/05/18 7:56 pm Comments DCP- Discharge Planning Updated by [email or web address]: Ann Hernandez on 07/05/18 5:[address] Patient Name: FLORIDALMA MIRAMONTES Admission Status: Elective Accout number: [id number] Admission Date: 07-04-2018 : 1950 Admission Diagnosis: Attending: IRVING WEST Current LOS: 1 Anticipated DC Date: Planned Disposition: Home Primary Insurance: [email or web address] Discharge Planning Comments: CM met with patient at bedside after explaining CM role and obtaining verbal consent. Patient lives at home alone and plans to return there upon discharge. Patient states her sister lives across the street. Patient feels this would be a safe discharge. CM discussed availability / needs of home health and medical equipment. Patient denies any discharge needs at this time. Patient states she will have family drive her home upon discharge. CM will continue to follow and assist as needed with discharge planning / needs. Ships Equipment Engineer: Ann Hernandez DCPIA - Discharge Planning Initial Assessment Updated by [email or web address]: Ann Hernandez on 07/05/18 6:49 pm * Is the patient Alert and Oriented? Yes * How many steps to enter\exit or inside your home? * PCP LIBERTY BENDER * [facility] * Preadmission Environment Home Alone * ADLs Independent * Equipment None * List name and contact numbers for known caregivers / representatives who currently or will assist patient after discharge: JADA SOTO [facility]- [phone] * Verbal permission to speak to the caregivers and representatives has been obtained from the patient. No * Community resources currently utilized None * Additional services required to return to the preadmission environment? No * Can the patient safely return to the preadmission environment? Yes * Has this patient been hospitalized within the prior 30 days at any hospital? No Last DP export: 07/05/18 5:50 pm Patient Name: FLORIDALMA MIRAMONTES Page [phone] at 1857 All edits/amendments must be made on the electronic document DICTATION DATE: 07/05/181855 MANUFACTURING SR ENGINEER: LACEY 07/05/181855 RPT#: [id number] DC DATE: STATUS: ADM IN [facility] [address] [place] [address] END OF REPORT
--- NOTE | 2018-07-05 22:56 | NUR ---
1900 REPORT REEIVED CARE ASSUMED. PT LAYING IN BED RESTING. VSS. SEE FLOW SHEET. PT VERBALIZES NO COMPLAINTS. WILL CONITNUE TO MONITOR. 2100 MEDS GIVEN PER JUN. WATER PROVIDED PER PT REQUEST. NO DIFFICULTY SWALLOWING NOTED. CONSENTS SIGNED TEACHING PROVIDED. 2199 FAMILY LEAVING BEDSIDE. PT ABLE TO AMBULATE WITH MODERATE ASSISTANCE TO BEDSIDE COMMODE. VSS. WILL CONTINUE TO MONITOR. 2299 REASSESSMENT DONE SEE FLOW SHEET. VSS. PT RESTING COMFORTABLY.
[2018-07-06] VITALS (31 sets, daily range): BP systolic 109–141; BP diastolic 54–76
--- NOTE | 2018-07-06 | NUR ---
PT NPO AT THIS TIME.
--- NOTE | 2018-07-06 01:00 | NUR ---
PT RESTING IN BED. VSS. WILL CONTINUE TO MONITOR.
--- NOTE | 2018-07-06 03:00 | NUR ---
REASSESSMENT DONE SEE FLOW SHEET. VSS. WILL CONITNUE TO MONITOR.
--- NOTE | 2018-07-06 05:00 | NUR ---
CALL LIGHT ANSWERED. QUESTIONS ANSWERED TEACHING PROVIDED. VSS. WILL CONTINUE TO MONITOR.
--- NOTE | 2018-07-06 11:16 | NUR ---
0800-ASSISTED PT TO BEDSIDE COMMODE-2 STAFF MEMBERS PRESENT-PT C/O THEY LET ME FALL YESTERDAY-QUESTIONED PT IF ABLE TO BEAR WEIGHT ON LEGS-PT EXCITABLE AND STATES YES-MINIMAL ASSISTANCE REQUIRED 0845-MODERATE NEEDS TEACHER AT [facility]-PREOP MEDS GIVEN-HELD NTG OIN DIRECTED BY MODERATE NEEDS TEACHER TEAM
[2018-07-06 11:19] LABS: BASOPHILS 0.4 % (0-2); EOSINOPHILS 1.1 % (0-7); HEMATOCRIT 38.8 % (36.0-48.0); HEMOGLOBIN 13.6 g/dL (12-16); IMMATURE GRANULOCYTES 0.2 % (0-5); LYMPHOCYTES 26.7 % (15-50); MCH 30.6 pg (26.0-34.0); MCHC 35.1 g/dL (31.0-37.0); MCV 87.2 fL (80.0-100.0); MEAN PLATELET VOLUME 12.9 fL (7.4-10.4); MONOCYTES 9.1 % (2-11); NEUTROPHILS 62.5 % (40-80); RBC 4.45 10x6/uL (4.00-5.40); RDW 12.3 % (11.5-14.5)
--- NOTE | 2018-07-06 11:19 | NUR ---
0945-RETURNED FROM CENTRAL SERVICE TECHNICIAN-R GROIN SOFT TO TOUCH DRG IN PLACE NO HEMATOMA PPP 1045-LAB DRAWN ORDERED-R A/C -
[2018-07-06 11:21] LABS: PLATELET COUNT 105 10x3/uL (130-400); WBC 5.7 10x3/uL (4.8-10.8)
[2018-07-06 11:23] LABS: CALC OSMOLALITY 275 mosm/kg (275-300); CALCIUM 8.3 mg/dL (8.5-10.1); CARBON DIOXIDE 25.9 mmol/L (21.0-32.0); CHLORIDE - SERUM 101 mmol/L (98-107); CREATININE - SERUM 0.8 mg/dL (0.6-1.3); POTASSIUM - SERUM 3.5 mmol/L (3.5-5.1); SODIUM 134 mmol/L (136-145); UREA NITROGEN 16 mg/dL (7-18); eGFR NON AFRICAN AMERICAN 75 mL/min (90-120)
[2018-07-06 11:26] LABS: GLUCOSE 219 mg/dL (74-106)
--- NOTE | 2018-07-06 12:35 | NUR ---
FOUND PT SITTING UP IN BED-EATING LUNCH TRAY -ASKED PT IF ASSISTED BY NURSE-SAID"NO KARLEY"-SIGNIFICANT ATHER AT BEDSIDE-STATED HE HELPED HER-R GROIN SOFT TO TOUCH-PPP--PT NON COMPLIANT TO DIRECTION-STATED DID NOT REMEMBER
--- NOTE | 2018-07-06 13:56 | NUR ---
ASSISTED TO BED SIDE CHAIR-PT STATED THINK I WILL FALL-2 STAFF PRESENT-BALANCE REMAINS-PT STATED STAFF MEMBERS ARE MEAN-?-R GROIN SOFT TO [id number] NO HEMATOMA NOTED PT RETURNED TO BED WITH ASSIST OF ONE STAFF MEMBER-TOLERATED WELL
--- NOTE | 2018-07-06 14:43 | NUR ---
FAMILY AT BEDSIDE-SR ON MONITOR
--- NOTE | 2018-07-06 15:05 | NUR ---
SITTING UP IN BED-FAMILY AT BEDSDIE-GROIN SOFT TO TOUCH-R LEG WEAK -KBRN
--- NOTE | 2018-07-06 17:31 | NUR ---
REFUSED OUT OF CHAIR AT THIS TIME-GROIN SOFT TO TOUCH
--- NOTE | 2018-07-06 20:55 | NUR ---
1900 REPORT RECEIVED CARE ASSUMED. ASSESSMENT DONE SEE FLOW SHEET. VSS. NO SIGNS OF ACUTE DISTRESS NOTED. PT VERBALIZES NO PAIN. 2100 MEDS GIVEN PER MAR. NO DIFFICULTY SWALLOWING NOTED. WILL CONTINUE TO MONITOR.
--- NOTE | 2018-07-06 23:00 | NUR ---
REASSESSMENT DONE SEE FLOW SHEET. VSS. PT ABLE TO AMBULATE TO BATHROOM WITH NO ASSISTANCE WILL CONTINUE TO MONITOR.
[2018-07-07] VITALS (12 sets, daily range): BP systolic 100–132; BP diastolic 43–74
--- NOTE | 2018-07-07 03:14 | NUR ---
0100 WATER PROVIDED PER PT REQUEST WILL CONITNUE TO MONITOR. 0300 REASSESSMENT DONE SEE FLOW SHEET. VSS. WILL CONITNUE TO MONITOR.
--- NOTE | 2018-07-07 04:53 | NUR ---
IO COLLECTED DAILY WEIGHT COLLECTED. VSS. NO SIGNS OF ACUTE DISTRESS NOTED WILL CONTINUE TO MONITOR.
--- NOTE | 2018-07-07 11:14 | NUR ---
0800-AWAKE AND ALERT-ASSISTED TO BEDSIDE CHAIR WITH MINIMAL ASSISTANCE REQUIRED- 0930-FAMILY AT BEDSIDE-PT AMBULATED TO BED INDEPENDENTLY 1030-AMBULATING IN HALLWAY WITH FAMILY
[2018-07-07] MEDS ORDERED: PLAVIX75 MG PO (15:08)
[2018-07-07] MEDS ORDERED: ASPIRIN325 MG PO (15:08)
[2018-07-07] MEDS ORDERED: METOPROLOL TART50 MG PO (15:08)
--- NOTE | 2018-07-07 15:46 | NUR ---
1500-DR ROBERSON NOTIFIED OF PT STATING DR WEST TOLD HER SHE COULD GO HOME MONDAY-CURRENT STATUS REOPORT GIVEN-AND ORDER RECIEVED-R GROIN SOFT TO TOUCH AND NO HEMATOMA LCSYR-[id number]-D IV D/C'D WITH TIP INTACT 1550-STRESSED TO PT NEED TO TAKE PLAVIX AND CONSEQUENCE OF HEART ATTACK IF SHE DOESN'T-SIGNIFICANT OTHER PRESENT-MEDICATIONS SENT TO [facility] ON AT REQUESTED-PT DIRECTED TO CALL DR WEST OFFICE ON MONDAY FOR 2 WK FOLLOW UP AND TELEPHONE NUMBER PROVIDED LEFT VIA WHEELCHAIR -ACCOMPANIED BY SIGNIFICANT OTHER
--- NOTE | 2018-07-09 08:33 | MORECARE ---
CASE MANAGEMENT DISCHARGE SUMMARY PATIENT: FLORIDALMA MIRAMONTES UNIT: [id number] ADM DATE: 07/04/18 AGE: 67 : [birth year] SEX: F ROOM/BED: [facility] AUTHOR: TRAVIS,DOC PHYSICIAN: REFERRING PHYSICIAN: IRVING WEST M.D. DATE OF SERVICE: 07/09/18 Discharge Plan Patient Name: FLORIDALMA MIRAMONTES Facility: [facility]:[place] : 1950 Planned Disposition: Home Anticipated Discharge Date: Discharge Date: 07/07/2018 Expected LOS: Initial Reviewer: [email or web address] Initial Review Date: 07/04/2018 Generated: 07/09/18 9:32 am Comments DCP- Discharge Planning Updated by [email or web address]: Ann Hernandez on 07/05/18 5:[address] Patient Name: FLORIDALMA MIRAMONTES Admission Status: Elective Accout number: [id number] Admission Date: 07-04-2018 : 1950 Admission Diagnosis: Attending: IRVING WEST Current LOS: 1 Anticipated DC Date: Planned Disposition: Home Primary Insurance: [employer] Discharge Planning Comments: CM met with patient at bedside after explaining CM role and obtaining verbal consent. Patient lives at home alone and plans to return there upon discharge. Patient states her sister lives across the street. Patient feels this would be a safe discharge. CM discussed availability / needs of home health and medical equipment. Patient denies any discharge needs at this time. Patient states she will have family drive her home upon discharge. CM will continue to follow and assist as needed with discharge planning / needs. Tower Air Traffic Control Specialist: Ann Hernandez DCPIA - Discharge Planning Initial Assessment Updated by [email or web address]: Ann Hernandez on 07/05/18 6:49 pm * Is the patient Alert and Oriented? Yes * How many steps to enter\exit or inside your home? * PCP LIBERTY BENDER * [facility] * Preadmission Environment Home Alone * ADLs Independent * Equipment None * List name and contact numbers for known caregivers / representatives who currently or will assist patient after discharge: JADA SOTO [facility]- [phone] * Verbal permission to speak to the caregivers and representatives has been obtained from the patient. No * Community resources currently utilized None * Additional services required to return to the preadmission environment? No * Can the patient safely return to the preadmission environment? Yes * Has this patient been hospitalized within the prior 30 days at any hospital? No Last DP export: 07/05/18 5:56 pm Patient Name: FLORIDALMA MIRAMONTES Page 23989 at 0833 All edits/amendments must be made on the electronic document DICTATION DATE: 07/09/18831 ENGRAVER BLOCK: LACEY 07/09/18831 RPT#: [id number] DC DATE:07/07/18 STATUS: DIS IN [facility] [address] [place] [address] END OF REPORT
== END 2018-07-07 15:54 | disposition home or self-care (01) | DRG 246 ==
LOC: D.ER 14:11 → D.CATH 14:11 → EDSTATUS 15:06 → D.SDCHOLD 15:25 → OBSVTIME 16:17 → D.CVICU 16:31 → D.SDCHOLD 07-05 17:11 → D.CVICU 07-05 17:16
PROVIDERS: Emergency Medicine; ADMIT Internal Medicine Cardiovascular Disease; ATTEND Internal Medicine Cardiovascular Disease
PROC: B2111ZZ Fluoroscopy of Multiple Coronary Arteries using Low Osmolar Contrast (ICD-10-PCS; 2018-07-04)
PROC: B2151ZZ Fluoroscopy of Left Heart using Low Osmolar Contrast (ICD-10-PCS; 2018-07-04)
PROC: 4A023N7 Measurement of Cardiac Sampling and Pressure, Left Heart, Percutaneous Approach (ICD-10-PCS; 2018-07-04)
PROC: 027036Z Dilation of Coronary Artery, One Artery with Three Drug-eluting Intraluminal Devices, Percutaneous Approach (ICD-10-PCS; 2018-07-04 15:07)
PROC: 027136Z Dilation of Coronary Artery, Two Arteries with Three Drug-eluting Intraluminal Devices, Percutaneous Approach (ICD-10-PCS; principal; 2018-07-06 08:19)
DX: I21.09 ST elevation (STEMI) myocardial infarction involving other coronary artery of anterior wall (principal); I10 Essential (primary) hypertension; E11.9 Type 2 diabetes mellitus without complications; F17.200 Nicotine dependence, unspecified, uncomplicated

== ENCOUNTER → 2018-11-23 08:52 | Outpatient (CLI) | payer OTHER ==
[2018-07-05 09:54] VITALS: BMI 30.2
[~2018-11-23 08:52] MED LIST: ASPIRIN325 MG PO; LOPRESSOR25 MG PO; METOPROLOL TART50 MG PO; PLAVIX75 MG PO
== END | disposition home or self-care (01) ==
LOC: D.HCCARDIO 08:52
PROVIDERS: ATTEND Internal Medicine Cardiovascular Disease
DX: I42.9 Cardiomyopathy, unspecified (principal)

== ENCOUNTER → 2019-01-08 14:37 | Outpatient (CLI) | payer OTHER ==
[2018-07-05 09:54] VITALS: BMI 30.2
== END | disposition home or self-care (01) ==
LOC: D.US 14:37
PROVIDERS: ATTEND Internal Medicine Cardiovascular Disease
DX: R10.31 Right lower quadrant pain (principal)

== ENCOUNTER → 2019-06-03 07:20 | Outpatient (CLI) | payer OTHER ==
[2018-07-05 09:54] VITALS: BMI 30.2
== END | disposition home or self-care (01) ==
LOC: D.HCCARDIO 07:20
PROVIDERS: ATTEND Internal Medicine Cardiovascular Disease
DX: R07.89 Other chest pain (principal)

== ENCOUNTER 2019-06-13 06:42 | Outpatient (CLI) | payer OTHER ==
[~2019-06-13] VITALS: Ht 165.1 cm; Wt 90.9 kg
--- NOTE | ~2019-06-13 | HEMODYNAMI ---
PATIENT:FLORIDALMA MIRAMONTES MEDICAL RECORD: [id number] : 48 LOCATION:[facility] ADMISSION DATE: 06/13/19 Generatedon:06/13/20199:14 Patient name: FLORIDALMA MIRAMONTES Patient #: [id number] : 1950 Date of study: 06/13/2019 Page: Of Hemodynamic Procedure Report Patient Data Patient Demographics Procedure consent was obtained First Name: FLORIDALMA Gender: Female Last Name: KULWINDER : 1950 Middle Initial: JOVANNA Age: 68 year(s) Patient #: [id number] Race: Black SSN: [id number] Additional ID: [id number] Contact details Address: [address] [place] [address] State: [place] City: [place] Zip code: [address] Past Medical History Allergies: No known allergies Admission Admission Data Admission Date: 06/13/2019 Admission Time: 6:42 Arrival Date: 06/13/2019 Arrival Time: 6:42 Admit Source: Other Insurance Payor: Private health insurance [facility] #: [id number] Procedure Procedure Types Cath Procedure Diagnostic Procedure LHC LH w/Coronaries Sedation Charges Moderate Sedation up to 30 minutes Procedure Description Procedure Date Procedure Date: 06/13/2019 Procedure Start Time: 8:53 Procedure End Time: 9:12 Procedure Staff Name Function Navneet Vega MD Performing Physician Joaquina Alejo RT Scrub Nel Zelaya RT Monitor Clarisa Smith RN Nurse Procedure Data Cath Procedure Fluoroscopy Diagnostic fluoroscopy Total fluoroscopy Time: 4.2 time: 4.2 min min Diagnostic fluoroscopy Total fluoroscopy dose: 771 dose: 771 mGy mGy Contrast Material Contrast Material Type Amount (ml) Isovue 300 51 Entry Location Entry Primary Successful Side Size Upsize Upsize Entry Closure Choi ccessful Closure Location (Fr) 1 (Fr) 2 (Fr) Remarks Device Remarks Radial Right 6 Fr Mechanical artery Short Compression Estimated blood loss: 5 ml Diagnostic catheters Device Type Used For End Catheter Placement DIAGNOSTIC [place] 110cm 5 Multi-vessel Fr catheter ([id number]) Angiography DIAGNOSTIC Jorge 110cm Multi-vessel 5Fr catheter (703094) Angiography Procedure Complications No complications Procedure Medications Medication Administration Route Dosage 0.9% NaCl I.V. 100 ml/hr Oxygen etCO2 Nasal cannula 2 l/min Lidocaine 2% added to field 20 Heparin Flush Bag added to field 2 bags (1000units/500ml NS) Radial Cocktail added to field 1 syringe (Verapamil 2mg/Nitro 400mcg/Heparin 1500units) Versed I.V. 2 mg Fentanyl I.V. 50 mcg Versed I.V. 2 mg Fentanyl I.V. 50 mcg Hemodynamics Rest Heart Rate: 54 (bpm) Pressure Samples Time Site Value (mmHg) Purpose Heart Use Rate(bpm) 8:57 LV 66/-2,0 Snapshot 79 Gradients Valve Time Site Site Mean SEP/DFP Peak To Heart Use 1 2 (mmHg) (sec/min) Peak Rate (mmHg) (bpm) Aortic 8:58 LV AO 84 Snapshots Pre Cath Intra NCS Post Cath Vital Signs Time Heart Resp SPO2 etCO2 NIBP (mmHg) Rhythm Pain Sedation Rate (ipm) (%) (mmHg) Status Level (bpm) 8:27:35 77 14 99 32 170/89(144) NSR 0 (11) 10(A) , No pain 8:31:55 75 21 96 26.8 159/89(132) NSR 0 (11) 10(A) , No pain 8:36:13 73 19 98 32 150/86(130) NSR 0 (11) 10(A) , No pain 8:40:31 74 13 100 29.8 158/81(130) NSR 0 (11) 10(A) , No pain 8:45:30 75 15 100 27.6 Measuring NSR 0 (11) 10(A) , No pain 8:45:59 74 15 100 27.6 150/76(115) NSR 0 (11) 10(A) , No pain 8:50:11 71 13 98 27.6 130/76(105) NSR 0 (11) 10(A) , No pain 8:54:21 71 13 98 27.6 122/74(98) NSR 0 (11) 9(A) , No pain 8:58:33 79 10 96 23.8 114/67(86) NSR 0 (11) 9(A) , No pain 9:02:40 73 10 96 32.8 115/71(88) NSR 0 (11) 9(A) , No pain 9:06:48 75 9 97 34.3 127/71(104) NSR 0 (11) 9(A) , No pain 9:11:04 75 9 98 32.1 129/76(105) NSR 0 (11) 10(A) , No pain Medications Time Medication Route Dose Verified Delivered Reason Notes Ef fectiveness by by 8:26:30 0.9% NaCl I.V. 100 Navneet Clarisa used for ml/hr Gary Smith clinic receptionist 8:26:36 Oxygen etCO2 2 l/min Navneet Clarisa used for Nasal Gary Smith procedure cannula RN 8:26:41 Lidocaine 2% added 20ml Navneet Navneet for local to vial Gary Vega MD anesthetic field 8:26:45 Heparin Flush added 2 bags Navneet Navneet used for Bag to Gary Vega MD procedure (1000units/500ml field NS) 8:26:53 Radial Cocktail added 1 Navneet Navneet used for (Verapamil to syringe Gary Vega MD procedure 2mg/Nitro field 400mcg/Heparin 1500units) 8:44:59 Versed I.V. 2 mg Navneet Clarisa for Gary Smith sedation RN 8:45:05 Fentanyl I.V. 50 mcg Navneet Clarisa for Gary Smith sedation RN 8:50:48 Versed I.V. 2 mg Navneet Clarisa for Gary Smith sedation RN 8:50:59 Fentanyl I.V. 50 mcg Navneet Clarisa for Gary Smith sedation wheel alignment mechanic Log Time Note 7:31:05 Informed consent obtained and on chart 7:31:19 Diagnostic Cath Status : Elective 7:33:23 Arrival Date: 06/13/2019 6:42:00 AM 7:33:41 Insurance Payor : Private health insurance 7:33:43 Admit Source: Other 7:35:02 ACC Patient presents with Stable Angina CCS Anginal Class 2--Slight limitation of ordinary activity. 7:35:06 ACCPatient has been prescribed/administered the following anti-anginal medication within the last 2 weeks: None 7:35:10 Procedure Status Elective Heart Cath (OP). 7:35:15 Clarisa Smith RN sent for patient. Start room use. 7:35:16 Time tracking: Regular hours (M-F 7:00 - 5:00) 7:35:20 Plan of Care:Hemodynamics will remain stable., Cardiac rhythm will remain stable., Comfort level will be maintained., Respiratory function will remain adequate., Patient/ family verbilizes understanding of procedure., Procedure tolerated without complication., Recovers from procedure without complications.. 8:20:22 Patient received from Pre/Post Procedure Room to [facility] 2 Alert and oriented. Tansferred to table in Supine position. 8:20:23 Warm blankets applied, and romelia hugger turned on for patient comfort. 8:20:23 Correct patient and procedure confirmed by team. 8:20:23 ECG and BP/O2 sat monitors applied to patient. 8:26:22 Vital chart was started 8:26:30 0.9% NaCl 100 ml/hr I.V. was administered by Clarisa Smith RN; used for procedure; Verbal order read back and verified. 8:26:36 Oxygen 2 l/min etCO2 Nasal cannula was administered by Clarisa Smith RN; used for procedure; Verbal order read back and verified. 8:26:41 Lidocaine 2% 20ml vial added to field was administered by Navneet Vega MD; for local anesthetic; Verbal order read back and verified. 8:26:45 Heparin Flush Bag (1000units/500ml NS) 2 bags added to field was administered by Navneet Vega MD; used for procedure; Verbal order read back and verified. 8:26:53 Radial Cocktail (Verapamil 2mg/Nitro 400mcg/Heparin 1500units) 1 syringe added to field was administered by Navneet Vega MD; used for procedure; Verbal order read back and verified. 8:27:31 Baseline sample Acquired. 8:27:36 Rhythm: sinus rhythm 8:27:42 Full Disclosure recording started 8:27:46 H&P Date Dictated: 06/13/2019 Within 30 days and on chart., H&P Addendum completed by physician on day of procedure. (MUST COMPLETE FOR ALL OUTPATIENTS). 8:27:48 Pre-procedure instructions explained to patient. 8:27:48 Pre-op teaching completed and patient verbalized understanding. 8:27:49 Family in waiting room. 8:27:50 Patient NPO since Midnight. 8:27:54 Is the patient allergic to Iodine/contrast media? No. 8:27:55 Was the patient premedicated? Yes 8:27:56 Is patient on blood thinner?No 8:28:09 Patient diabetic? Yes. 8:28:10 If diabetic: On Metformin? Yes 8:28:14 If on Metformin: Last Dose? 06/12/2019 8:28:17 Previous problem with sedation/anesthesia? No ? 8:28:18 Snore? Yes 8:28:19 Sleep apnea? Yes 8:28:20 Deviated septum? No 8:28:21 Opens mouth fully? Yes 8:28:21 Sticks out tongue? Yes 8:28:23 Airway obstruction? No ? 8:28:42 Dentures? Yes IN TIGHT 8:28:46 Pre procedure: right dorsailis pedis pulse 2+ Normal; easily identifiable; not easily obliterated 8:28:48 Pre procedure: left dorsailis pedis pulse 2+ Normal; easily identifiable; not easily obliterated 8:28:50 Patient pain scale 0/10 ?. 8:28:56 IV patent on arrival in left forearm with 0.9% NaCl at O. 8:28:58 Lab results completed and on chart. 8:29:03 Stress Test: no; N/A ? 8:32:28 Risk of Mortality: 0.1 8:32:31 Risk of blood transfusion: 0.3 8:32:34 Risk of LARA: 0.8 8:32:39 Right Radial & Right Groin area was prepped with chlora-prep and draped in sterile fashion 8:32:47 Alarms reviewed by R. N. 8:32:47 Sharps counted by scrub and verified by R.N. 8:32:59 1) 90+ Normal kidney functon but urine findings or structural abnormalities or genetic trait point to kidney disease. 8:33:02 Maximum allowable contrast dose (3.7 X eGFR X 0.75)249 ml. 8:33:07 Sedation plan: IV Moderate Sedation Medication:Versed, Fentanyl 8:33:15 Use device set Radial Dx or PCI 8:33:15 ACIST Syringe (15485) opened to sterile field. 8:33:16 Medline Cath Pack ([id number]) opened to sterile field. 8:33:16 Bag Decanter (2001S) opened to sterile field. 8:33:17 ACIST Hand Control (45867) opened to sterile field. 8:33:17 ACIST Manifold (86739) opened to sterile field. 8:33:18 Tegaderm 4 x 4 (1626W) opened to sterile field. 8:33:18 MBrace Wrist Support ([id number]) opened to sterile field. 8:33:19 NEEDLE Cook 21G 4cm Radial (F96501) opened to sterile field. 8:33:20 SHEATH 6FR RAIN (6350724) opened to sterile field. 8:33:21 EMERALD Guide Wire (379-096) opened to sterile field. 8:40:38 Physician arrived 8:40:39 --------ALL STOP TIME OUT------ 8:40:39 Final Timeout: patient, procedure, and site verified with staff and physician. All members of the team are in agreement. 8:40:42 Right Radial & Right Groin site verified by team. 8:40:46 Fire Safety Assessment: A--An alcohol-based skin anteseptic being used preoperatively., C--Open oxygen or nitrous oxide is being used., D--An ESU, laser, or fiber-optic light is being used. 8:40:50 Physical assessment completed. ASA score P 2 - A patient with mild systemic disease as per Navneet Vega MD. 8:44:59 Versed 2 mg I.V. was administered by Clarisa Smith RN; for sedation; Verbal order read back and verified. 8:45:05 Fentanyl 50 mcg I.V. was administered by Clarisa Smith RN; for sedation; Verbal order read back and verified. 8:50:48 Versed 2 mg I.V. was administered by Clarisa Smith RN; for sedation; Verbal order read back and verified. 8:50:59 Fentanyl 50 mcg I.V. was administered by Clarisa Smith RN; for sedation; Verbal order read back and verified. 8:53:26 Procedure started. 8:53:37 Local anesthetic to right radial artery with Lidocaine 2% by Navneet Vega MD.INITIAL ACCESS ONLY 8:55:06 A 6 Fr Short sheath was inserted into the Right Radial artery 8:55:23 A DIAGNOSTIC [place] 110cm 5 Fr catheter (158597) was advanced over the wire and used for Multi-vessel Angiography. 8:55:28 Zero performed for pressure channel P1 8:57:44 LV hemodynamics recorded. 8:57:47 Injector settings: Ml/sec: 5, Volume: 15, 8:58:23 EF : 55 % 8:59:23 RCA angiography performed. 8:59:30 Injector settings: Ml/sec: 3, Volume: 6, 9:02:10 Catheter removed. 9:02:55 A DIAGNOSTIC Jorge 110cm 5Fr catheter (388993) was advanced over the wire and used for Multi-vessel Angiography. 9:03:32 LCA angiography performed. 9:03:35 Injector settings: Ml/sec: 3, Volume: 6, 9:03:36 ACCDominant side:Co-Dominant 9:08:03 Catheter removed. 9:08:22 ZEPHYR REGULAR TR BAND (171322) opened to sterile field. 9:08:37 Sheath removed intact; hemostasis achieved with Mechanical Compression to the Right Radial artery. 9:08:39 Procedure ended.(Physican Out) 9:08:59 Fluoroscopy time 04.20 minutes. 9:09:03 Flurop Dose total: 771 9:09:03 Fluoroscopy dose: 771 mGy 9:09:08 Dose Area Product 28384 mGy/cm. 9:09:59 Contrast amount:Isovue 300 51ml. 9:10:01 Maximum allowable dose exceeded? No. 9:10:02 Sharps counted by scrub and verified by R.N. 9:10:04 Rosharon band inflated with 10cc of air. 9:10:49 Post right radial artery:stable 9:11:00 Post Procedure Pulses reassessed and unchanged 9:11:03 Post procedure rhythm: unchanged. 9:11:05 Estimated blood loss: 5 ml 9:11:07 Post procedure instruction explained to patient.Patient verbalizes understanding. 9:11:07 Patient needs reinforcement of post procedure teaching. 9:11:33 Procedure type changed to Cath procedure, Diagnostic procedure, LHC, LHC w/Coronaries, Sedation Charges, Moderate Sedation up to 30 minutes 9:11:34 Procedure and supply charges have been captured, reviewed, submitted and are correct. 9:11:38 Procedure Complication : No complications 9:11:40 Vital chart was stopped 9:11:45 [facility] Findings: MVD- will discuss options w/ pt 9:11:47 Operative report dictated upon procedure completion. 9:11:48 See physician's report for complete and final results. 9:12:10 Report given to Pre/Post Procedure Room. 9:12:13 Patient transfered to Pre/Post Procedure Room with Stretcher. 9:12:23 Procedure ended. 9:12:23 Full Disclosure recording stopped 9:12:32 End room use (Document Last) 9:13:23 End room use (Document Last) 9:13:51 End room use (Document Last) Device Usage Item Name Manufacture Quantity Catalog Hospital Part Current Minima l Lot# / Number Charge Number Stock Stock Serial# Code ACIST Acist 1 92107 [id number] 228383 180094 20 Syringe Medical (80893) Systems Inc Medline Medline 1 [id number] 325886 38021 313787 5 Cath Pack ([id number]) Bag Microtek 1 2001S 465838 46879 017317 5 Decanter Medical Inc. () ACIST Hand Acist 1 00008 820851 570550 067936 5 Control Medical (69239) Systems Inc ACIST Acist 1 93022 755977 742266 033427 5 Manifold Medical (35953) Systems Inc Tegaderm 4 3M 1 1626W 894152 434422 419842 5 x 4 (1626W) MBrace Advanced 1 140-0250-00 117250 31779 713896 5 Wrist Vascular Support Dynamics ([id number]) NEEDLE Cook Vuv Analytics Medical 1 [id number] 554686 190725 386748 5 21G 4cm Radial (G24542) SHEATH 6FR Cardinal 1 0906373 364517 9236245 752536 5 [facility] (8513318) EMERALD Cardinal 1 966-993 179344 617503 532588 5 Guide Wire Health (142-862) DIAGNOSTIC Terumo 1 40-5013 664359 621513 584130 5 [place] 110cm 5 Fr catheter (019881) DIAGNOSTIC Terumo 1 40-5023 192996 422830 958683 5 Jorge 110cm 5Fr catheter (003663) ZEPHYR Cardinal 1 384020 316880 6738067 924234 5 REGULAR TR Health BAND (624039) Signature Audit [employer] Stage Time Signature Unsigned Intra-Procedure 06/13/2019 Joaquina Alejo 9:13:23 AM RT(R) Intra-Procedure 06/13/2019 Clarisa Smith 9:13:51 AM RN Intra-Procedure 06/13/2019 Navneet Vega MD 9:14:24 AM Signatures Performing Physician : Signature : Navneet Vega MD Date : Time : Monitor : Nel Zelaya Signature : RT Date : Time : Nurse : Clarisa Smith RN Signature : Date : Time : [facility] [address] [place] [address], [place] [address]
[2019-06-13] MEDS ORDERED: GLUCOTROL XL 1010 MG PO (07:29)
[2019-06-13] MEDS ORDERED: GLUCOPHAGE500 MG PO (07:30)
[2019-06-13] MEDS ORDERED: JANUVIA100 MG PO (07:30)
[2019-06-13 07:52] VITALS: BP 173/78; Ht 165.1 cm; Wt 90.9 kg
[2019-06-13 07:56] LABS: BASOPHILS 0.2 % (0-2); EOSINOPHILS 1.7 % (0-7); HEMATOCRIT 38.2 % (36.0-48.0); HEMOGLOBIN 13.3 g/dL (12-16); IMMATURE GRANULOCYTES 0.2 % (0-5); MCH 30.2 pg (26.0-34.0); MCHC 34.8 g/dL (31.0-37.0); MCV 86.6 fL (80.0-100.0); MEAN PLATELET VOLUME 12.1 fL (7.4-10.4); MONOCYTES 6.6 % (2-11); NEUTROPHILS 60.3 % (40-80); RBC 4.41 10x6/uL (4.00-5.40); RDW 12.2 % (11.5-14.5); WBC 4.1 10x3/uL (4.8-10.8)
[2019-06-13 08:02] LABS: PLATELET COUNT 156 10x3/uL (130-400)
[2019-06-13 08:20] LABS: ALT (SGPT) 17 U/L (10-68); CALC OSMOLALITY 285 mosm/kg (275-300); CALCIUM 8.2 mg/dL (8.5-10.1); CARBON DIOXIDE 25.7 mmol/L (21.0-32.0); CHLORIDE - SERUM 104 mmol/L (98-107); CHOL - HDL RATIO 2.5 ratio (2.3-4.1); CHOLESTEROL, TOTAL 155 mg/dL (0-200); CREATININE - SERUM 0.7 mg/dL (0.6-1.3); GLUCOSE 265 mg/dL (74-106); HDL CHOLESTEROL 61 mg/dL (32-96); LDL CHOLESTEROL 88 mg/dL (0-100); LDL-HDL RATIO 1.4 ratio (1.5-3.5); POTASSIUM - SERUM 3.9 mmol/L (3.5-5.1); SODIUM 139 mmol/L (136-145); TRIGLYCERIDE 33 mg/dL (30-200); UREA NITROGEN 10 mg/dL (7-18); eGFR NON AFRICAN AMERICAN 88 mL/min (90-120)
--- NOTE | 2019-06-13 09:30 | NUR ---
REC TO ROOM FROM STEREOPLOTTER OPERATOR VIA STRETCHER, R WRIST ZBAND INTACT, RADIAL PULSE PALPABLE ABOVE AND BELOW, MONITORING INITIATED. BP 157/80, NSR 75, RR 10, SAT 100% ON 2LNC. FRIEND AT BEDSIDE.
--- NOTE | 2019-06-13 09:51 | NUR ---
R WRIST ZBAND INTACT, RADIAL PULSE PALPABLE ABOVE AND BELOW BAND. NO S/S BLEEDING OR HEMATOMA. BP 157/80, SR 71, RR 10, SAT 100% 2LNC.
--- NOTE | 2019-06-13 10:25 | NUR ---
R WRIST ZBAND CDI, NO S/S BLEEDING OR HEMATOMA.
--- NOTE | 2019-06-13 10:36 | NUR ---
DR WEST IN TO SPEAK W PT/FRIEND. NO NEW MEDICATIONS ORDERED AT THIS TIME, F/U IN CLINIC SCHEDULED.
--- NOTE | 2019-06-13 11:04 | NUR ---
R RADIAL ZBAND INTACT, NO S/S BLEEDING OR HEMATOMA. 3ML AIR REMOVED FROM BAND. PROVIDED TURKEY SANDWICH AND COFFEE.
--- NOTE | 2019-06-13 11:08 | NUR ---
2ML AIR REMOVED R RADIAL ZBAND. NO S/S BLEEDING OR HEMATOMA. BP 136/60, NSR 66, RA SAT 98%
--- NOTE | 2019-06-13 11:19 | NUR ---
2ML REMOVED ZBAND FOR TOTAL OF 7ML OUT. NO S/S BLEEDING OR HEMATOMA. TOLERATING SANDWICH AND COFFEE. BP 138/55, NSR 67, SAT 98% RA.
--- NOTE | 2019-06-13 11:39 | NUR ---
R WRIST NO S/S BLEEDING OR HEMATOMA. IV DC TIP INTACT, MONITORING DC. PT DRESSING W FRIEND'S HELP.
--- NOTE | 2019-06-13 11:45 | NUR ---
R WRIST Z BAND NO S/S BLEEDING OR HEMATOMA. REMOVED THE BAND, TEGADERM AND 2X2 APPLIED TO SITE. DISCHARGE INSTRUCTIONS REVIEWED W PT AND FRIEND, VERBALIZED UNDERSTANDING. PT DC HOME VIA WHEELCHAIR TO PRIVATE CAR W FRIEND, PT HAS ALL BELONGINGS.
== END 2019-06-13 11:50 | disposition home or self-care (01) ==
LOC: D.CATH 06:42
PROVIDERS: ATTEND Internal Medicine Cardiovascular Disease
DX: I25.119 Atherosclerotic heart disease of native coronary artery with unspecified angina pectoris (principal); R94.39 Abnormal result of other cardiovascular function study; I42.9 Cardiomyopathy, unspecified; I10 Essential (primary) hypertension